=== PATIENT | female | born 1960 | race Caucasian/White ===

== ENCOUNTER 2016-10-18 10:52 | Emergency (ER) | payer BC ==
[~2016-10-18] VITALS: Ht 165.1 cm; Wt 89.4 kg
[~2016-10-18 10:52] MED LIST: ADVAIR HFA120 INHALA IH; FLEXERIL10 MG PO; IBUPROFEN800 MG PO; LO-DOSE ASPIRIN81 M1 PO; LORTAB 5-325 M1 EACH PO; MOTRIN600 MG PO; NAPROXEN500 MG PO; NOHOMEMEDS; OMEPRAZOLE40 M1 PO; TRAMADOL HCL50 MG PO
[2016-10-18] MEDS ORDERED: MOTRIN800 MG PO (14:34)
[2016-10-18] MEDS ORDERED: KEFLEX500 MG PO (14:34)
[2016-10-18 14:42] VITALS: BP 111/60
== END 2016-10-18 14:44 | disposition home or self-care (01) ==
LOC: EME 10:52
DX: I80.01 Phlebitis and thrombophlebitis of superficial vessels of right lower extremity (principal); I83.91 Asymptomatic varicose veins of right lower extremity; Z79.82 Long term (current) use of aspirin; F17.200 Nicotine dependence, unspecified, uncomplicated
CPT/HCPCS: 93971; 99281; 99284